=== PATIENT | male | born 1965 | race Caucasian/White ===

== ENCOUNTER → 2017-09-11 06:46 | Outpatient (CLI) | payer OTHER, SELFPAY ==
[2017-09-11 08:37] LABS: Cholesterol 209 mg/dL (140-199); HDL Cholesterol 54 mg/dL (40-60); Magnesium 1.5 mg/dL (1.6-2.3); Triglycerides 410 mg/dL (35-150)
== END ==
PROVIDERS: PCP Family Medicine; Visit Provider Internal Medicine Cardiovascular Disease
DX: R00.2 Palpitations (principal); E78.2 Mixed hyperlipidemia
CPT/HCPCS: 36415; 80061; 83735

== ENCOUNTER → 2019-01-31 06:46 | Outpatient (CLI) | payer OTHER, SELFPAY ==
[2019-01-31 09:17] LABS: Alanine Aminotransferase 39 IU/L (21-72); Albumin 4.5 g/dL (3.5-5.0); Albumin Globulin Ratio 1.3 (1.0-2.8); Alkaline Phosphatase 58 U/L (38-126); Aspartate Aminotransferase 37 IU/L (17-59); Bilirubin Total 0.7 mg/dL (0.2-1.3); Blood Urea Nitrogen 9 mg/dL (9-20); Calcium 9.6 mg/dL (8.4-10.2); Carbon Dioxide 28 mmol/L (22-32); Chloride 103 mmol/L (98-107); Cholesterol 167 mg/dL (140-199); Estimated Glomerular Filt Rate > 60.0 mL/min (>60); Globulin 3.6 g/dL (1.7-4.1); Glucose 75 mg/dL (70-100); HDL Cholesterol 46 mg/dL (40-60); HEMOLYSIS < 15 (0-50); Potassium 4.4 mmol/L (3.4-5.1); Sodium 141 mmol/L (137-145); Total Protein 8.1 g/dL (6.3-8.2)
[2019-01-31 09:26] LABS: Triglycerides 558 mg/dL (35-150)
[2019-01-31 09:45] LABS: Prostate Specific Antigen Scrn 2.03 ng/mL (0.1-4.0)
[2019-01-31 10:25] LABS: Add Manual Diff / Slide Review NO; Basophils Absolute Auto 0 /uL (0-100); Basophils Percent Auto 0.6 % (0-2); Eosinophils Absolute Auto 100 /uL (0-450); Eosinophils Percent Auto 1.3 % (2-4); Hematocrit 43.4 % (41-53); Hemoglobin 14.9 g/dL (13.5-17.5); Lymphocytes Absolute Auto 1600 /uL (1100-4500); Lymphocytes Percent Auto 34.6 % (25-40); Mean Corpuscular HGB Conc 34.3 % (30-36); Mean Corpuscular Hemoglobin 32.2 PG (26-34); Mean Corpuscular Volume 93.9 fL (80-100); Monocytes Absolute Auto 600 /uL (0-900); Monocytes Percent Auto 13.2 % (3-14); Neutrophils Absolute Auto 2400 /uL (1500-7000); Neutrophils Percent Auto 50.3 % (50-75); Platelet Count 268 X10^3/uL (150-400); Red Blood Cell Count 4.62 X10^6/uL (4.5-5.9); Red Cell Distribution Width 13.6 % (11.6-14.8); White Blood Cell Count 4.7 X10^3/uL (4.5-11.0)
== END ==
PROVIDERS: Family Provider Internal Medicine Cardiovascular Disease; PCP Family Medicine; Visit Provider Family Medicine
DX: Z12.5 Encounter for screening for malignant neoplasm of prostate (principal); E78.5 Hyperlipidemia, unspecified
CPT/HCPCS: 36415; 80053; 80061; 85025; G0103

== ENCOUNTER → 2019-05-04 07:53 | Outpatient (CLI) | payer OTHER, SELFPAY ==
[2019-05-04 09:08] LABS: Cholesterol 183 mg/dL (140-199); HDL Cholesterol 55 mg/dL (40-60); LDL Cholesterol Calculated 79 mg/dL (<100); Triglycerides 247 mg/dL (35-150)
== END ==
PROVIDERS: PCP Family Medicine; Visit Provider Family Medicine
DX: E78.2 Mixed hyperlipidemia (principal)
CPT/HCPCS: 36415; 80061

== ENCOUNTER → 2020-03-24 07:44 | Outpatient (CLI) | payer OTHER, SELFPAY ==
[2020-03-24 08:42] LABS: Alanine Aminotransferase 30 IU/L (<50); Albumin 4.8 g/dL (3.5-5.0); Albumin Globulin Ratio 1.3 (1.0-2.8); Alkaline Phosphatase 69 U/L (38-126); Aspartate Aminotransferase 38 IU/L (17-59); BUN Creatinine Ratio 16.3 (6-22); Bilirubin Total 0.5 mg/dL (0.2-1.3); Blood Urea Nitrogen 14 mg/dL (9-20); Calcium 9.9 mg/dL (8.4-10.2); Carbon Dioxide 30 mmol/L (22-32); Chloride 103 mmol/L (98-107); Cholesterol 216 mg/dL (140-199); Estimated Glomerular Filt Rate > 60.0 mL/min (>60); Globulin 3.8 g/dL (1.7-4.1); Glucose 98 mg/dL (70-100); HDL Cholesterol 48 mg/dL (40-60); HEMOLYSIS 15 (0-50); Magnesium 1.5 mg/dL (1.6-2.3); Potassium 4.3 mmol/L (3.4-5.1); Sodium 140 mmol/L (137-145); Total Protein 8.6 g/dL (6.3-8.2); Triglycerides 465 mg/dL (35-150)
[2020-03-24 08:53] LABS: LDL Cholesterol Direct 38 mg/dL (<100)
== END ==
PROVIDERS: PCP Internal Medicine; Referring Provider Internal Medicine; Visit Provider Internal Medicine
DX: E78.2 Mixed hyperlipidemia (principal); E83.42 Hypomagnesemia
CPT/HCPCS: 36415; 80053; 80061; 83721; 83735

== ENCOUNTER → 2020-07-30 10:17 | Outpatient (CLI) | payer OTHER, SELFPAY ==
[2020-07-30] MEDS: COVID-19 VACC, Ad26(JANSSEN)/PF 0.5 ML IM (10:22)
== END ==
PROVIDERS: PCP Internal Medicine; Visit Provider Internal Medicine
DX: Z23 Encounter for immunization (principal)
CPT/HCPCS: 0031A; 91303

== ENCOUNTER → 2020-09-25 06:58 | Outpatient (CLI) | payer OTHER, SELFPAY ==
[2020-09-25 08:17] LABS: Alanine Aminotransferase 24 IU/L (<50); Albumin 4.6 g/dL (3.5-5.0); Albumin Globulin Ratio 1.3 (1.0-2.8); Alkaline Phosphatase 76 U/L (38-126); Aspartate Aminotransferase 34 IU/L (17-59); BUN Creatinine Ratio 18.8 (6-22); Bilirubin Total 0.4 mg/dL (0.2-1.3); Blood Urea Nitrogen 15 mg/dL (9-20); Calcium 9.9 mg/dL (8.4-10.2); Carbon Dioxide 23 mmol/L (22-32); Chloride 104 mmol/L (98-107); Cholesterol 251 mg/dL (140-199); Estimated Glomerular Filt Rate > 60.0 mL/min (>60); Globulin 3.6 g/dL (1.7-4.1); Glucose 95 mg/dL (70-100); HDL Cholesterol 48 mg/dL (40-60); HEMOLYSIS < 15 (0-50); Magnesium 1.6 mg/dL (1.6-2.3); Potassium 4.5 mmol/L (3.4-5.1); Sodium 137 mmol/L (137-145); Total Protein 8.2 g/dL (6.3-8.2)
[2020-09-25 08:26] LABS: Triglycerides 661 mg/dL (35-150)
[2020-09-25 08:29] LABS: LDL Cholesterol Direct 40 mg/dL (<100)
== END ==
PROVIDERS: PCP Internal Medicine; Referring Provider Internal Medicine; Visit Provider Internal Medicine
DX: E78.2 Mixed hyperlipidemia (principal); E83.42 Hypomagnesemia
CPT/HCPCS: 36415; 80053; 80061; 83721; 83735

== ENCOUNTER → 2021-01-07 06:51 | Outpatient (CLI) | payer OTHER, SELFPAY ==
[2021-01-07 08:43] LABS: Alanine Aminotransferase 32 IU/L (<50); Albumin 4.8 g/dL (3.5-5.0); Albumin Globulin Ratio 1.4 (1.0-2.8); Alkaline Phosphatase 43 U/L (38-126); Aspartate Aminotransferase 39 IU/L (17-59); BUN Creatinine Ratio 12.8 (6-22); Bilirubin Total 0.4 mg/dL (0.2-1.3); Blood Urea Nitrogen 12 mg/dL (9-20); Calcium 9.3 mg/dL (8.4-10.2); Carbon Dioxide 26 mmol/L (22-32); Chloride 107 mmol/L (98-107); Cholesterol 152 mg/dL (140-199); Estimated Glomerular Filt Rate > 60.0 mL/min (>60); Globulin 3.4 g/dL (1.7-4.1); Glucose 86 mg/dL (70-100); HDL Cholesterol 59 mg/dL (40-60); HEMOLYSIS < 15 (0-50); LDL Cholesterol Calculated 45 mg/dL (<100); Potassium 4.5 mmol/L (3.4-5.1); Sodium 143 mmol/L (137-145); Total Protein 8.2 g/dL (6.3-8.2); Triglycerides 238 mg/dL (35-150)
[2021-01-07 09:19] LABS: LDL Cholesterol Direct < 30 mg/dL (<100)
== END ==
PROVIDERS: PCP Internal Medicine; Referring Provider Internal Medicine; Visit Provider Internal Medicine
DX: E78.2 Mixed hyperlipidemia (principal)
CPT/HCPCS: 36415; 80053; 80061; 83721

== ENCOUNTER → 2021-12-04 07:53 | Outpatient (CLI) | payer OTHER, SELFPAY ==
[2021-12-04 09:46] LABS: Alanine Aminotransferase 24 IU/L (<50); Albumin 4.5 g/dL (3.5-5.0); Albumin Globulin Ratio 1.3 (1.0-2.8); Alkaline Phosphatase 54 U/L (38-126); Aspartate Aminotransferase 30 IU/L (17-59); BUN Creatinine Ratio 12.6 (6-22); Bilirubin Total 0.2 mg/dL (0.2-1.3); Blood Urea Nitrogen 14 mg/dL (9-20); Calcium 9.1 mg/dL (8.4-10.2); Carbon Dioxide 28 mmol/L (22-32); Chloride 107 mmol/L (98-107); Cholesterol 146 mg/dL (140-199); Estimated Glomerular Filt Rate > 60 mL/min (>60); Globulin 3.5 g/dL (1.7-4.1); Glucose 89 mg/dL (70-100); HDL Cholesterol 49 mg/dL (40-60); HEMOLYSIS < 15 (0-50); LDL Cholesterol Calculated 60 mg/dL (<100); Magnesium 1.5 mg/dL (1.6-2.3); Potassium 4.7 mmol/L (3.4-5.1); Sodium 140 mmol/L (137-145); Triglycerides 183 mg/dL (35-150)
[2021-12-04 10:22] LABS: LDL Cholesterol Direct < 30 mg/dL (<100)
== END ==
PROVIDERS: PCP Internal Medicine; Referring Provider Internal Medicine; Visit Provider Internal Medicine
DX: E83.42 Hypomagnesemia (principal); E78.2 Mixed hyperlipidemia; Z12.5 Encounter for screening for malignant neoplasm of prostate
CPT/HCPCS: 36415; 80053; 80061; 83721; 83735; G0103

== ENCOUNTER → 2023-10-16 07:27 | Outpatient (CLI) | payer OTHER, SELFPAY ==
[2023-10-16 08:12] LABS: Add Manual Diff / Slide Review NO; Basophils Absolute Auto 0 /uL (0-100); Basophils Percent Auto 0.7 % (0-2); Eosinophils Absolute Auto 100 /uL (0-450); Eosinophils Percent Auto 1.3 % (2-4); Hematocrit 43.8 % (41-53); Hemoglobin 14.9 g/dL (13.5-17.5); Lymphocytes Absolute Auto 1600 /uL (1100-4500); Lymphocytes Percent Auto 24.9 % (25-40); Mean Corpuscular HGB Conc 34.1 % (30-36); Mean Corpuscular Hemoglobin 31.4 PG (26-34); Mean Corpuscular Volume 92.1 fL (80-100); Monocytes Absolute Auto 800 /uL (0-900); Monocytes Percent Auto 11.7 % (3-14); Neutrophils Absolute Auto 3900 /uL (1500-7000); Neutrophils Percent Auto 61.4 % (50-75); Platelet Count 282 X10^3/uL (150-400); Red Blood Cell Count 4.76 X10^6/uL (4.5-5.9); Red Cell Distribution Width 14.3 % (11.6-14.8); White Blood Cell Count 6.4 X10^3/uL (4.5-11.0)
[2023-10-16 08:33] LABS: Alanine Aminotransferase 28 IU/L (<50); Albumin 4.8 g/dL (3.5-5.0); Albumin Globulin Ratio 1.3 (1.0-2.8); Alkaline Phosphatase 53 U/L (38-126); Aspartate Aminotransferase 33 IU/L (17-59); BUN Creatinine Ratio 11.6 (6-22); Bilirubin Total 0.5 mg/dL (0.2-1.3); Blood Urea Nitrogen 13 mg/dL (9-20); Calcium 9.5 mg/dL (8.4-10.2); Carbon Dioxide 26 mmol/L (22-32); Chloride 108 mmol/L (98-107); Cholesterol 160 mg/dL (140-199); Estimated Glomerular Filt Rate > 60 mL/min (>60); Globulin 3.8 g/dL (1.7-4.1); Glucose 106 mg/dL (70-100); HDL Cholesterol 67 mg/dL (40-60); HEMOLYSIS < 15 (0-50); LDL Cholesterol Calculated 74 mg/dL (<100); Potassium 4.9 mmol/L (3.4-5.1); Sodium 140 mmol/L (137-145); Total Protein 8.6 g/dL (6.3-8.2); Triglycerides 95 mg/dL (35-150)
[2023-10-16 08:45] LABS: LDL Cholesterol Direct 46 mg/dL (<100)
[2023-10-16 08:55] LABS: Prostate Specific Antigen Scrn 2.26 ng/mL (0.1-4.0)
== END ==
PROVIDERS: PCP Internal Medicine; Referring Provider Internal Medicine; Visit Provider Internal Medicine
DX: Z12.5 Encounter for screening for malignant neoplasm of prostate (principal); Z13.6 Encounter for screening for cardiovascular disorders; Z13.1 Encounter for screening for diabetes mellitus; Z13.220 Encounter for screening for lipoid disorders; E78.2 Mixed hyperlipidemia; D64.9 Anemia, unspecified
CPT/HCPCS: 36415; 80053; 80061; 83721; 85025; G0103

== ENCOUNTER → 2024-04-15 07:34 | Outpatient (CLI) | payer OTHER, SELFPAY ==
--- NOTE | 2024-04-15 07:36 | DI.ECHO.S_ITS ---
[facility] : : [id number] : : [place] : : [id number] : : Phone: [phone] Echocardiogram Report + + :Name: ENRIQUE MICHAEL Study Date: 04/15/2024 Height: 71 in : :Hospital ReadingLocation: Weight: 178 lb : : Gender: Male BSA: 2.0 m2 : :: 1965 Age: 58 yrs BP: 151/93 mmHg: :Reason For Study: CHEST DISCOMFORT : :Ordering Physician: JOAQUINA, : :BARBY Performed By: Mary Noriega : :Referring: BARBY KUNZ : + + Interpretation Summary The left ventricle is normal in size. The left ventricular ejection fraction is normal. Left ventricular ejection fraction is estimated to be 60 +/- 5%. Previously LVEF 55 to 60%. The right ventricle is normal size. The right ventricular systolic function is normal. No significant valvular pathology seen The IVC is of normal diameter and collapses greater than 50% with a sniff. This suggests a low right atrial pressure of 3 mm Hg. Procedure: A two-dimensional transthoracic echocardiogram with color flow and Doppler was performed. The study quality was technically adequate. Comparison is made with the echocardiogram of 03/21/2014. The patient was in sinus rhythm with heart rates between 88-95 bpm during the exam. Left Ventricle: The left ventricle is normal in size. Proximal septal thickening is noted. There is no echo evidence for significant left ventricular outflow tract obstruction. There is no thrombus. The left ventricular ejection fraction is normal. Left ventricular ejection fraction is estimated to be 60 +/- 5%. Septal motion is consistent with conduction abnormality. Diastolic parameters suggest a relaxation abnormality of the left ventricle, consistent with probable normal filling pressures. Right Ventricle: The right ventricle is normal size. A moderator band is seen in the right ventricle. The right ventricular systolic function is normal. Atria: The left atrial size is normal. There has been no significant change since the previous study. Right atrial size is normal. There is no Doppler evidence for an interatrial shunt. The thickening of interatrial septum suggests lipomatous hypertrophy. Mitral Valve: The mitral valve leaflets appear to open well. The mitral valve leaflets appear borderline thickened, but open well. There is trace mitral regurgitation. Aortic Valve: The aortic valve is trileaflet. The aortic valve is slightly calcified. The aortic valve opens well. There is no aortic valve stenosis. No aortic regurgitation is present. Tricuspid Valve: The tricuspid valve is normal. Pulmonary artery pressures cannot be estimated because of the lack of a measurable TR jet velocity. There is trace tricuspid regurgitation. Pulmonic Valve: The pulmonic valve leaflets are thin and pliable; valve motion is normal. There is no pulmonic valvular regurgitation. Great Vessels: The aortic root is normal size. The dimensions of the ascending aorta are normal. The IVC is of normal diameter and collapses greater than 50% with a sniff. This suggests a low right atrial pressure of 3 mm Hg. Pericardium/ Pleura There is no pericardial effusion. There is no pleural effusion. MMode/2D Measurements & Calculations LVIDd: 4.2 cm LVOT diam: 2.2 cm LVIDs: 3.0 cm Ao root diam: 3.5 cm FS: 28.6 % asc Aorta Diam: 3.4 cm IVSd: 0.95 cm Ao Arch Diam (Prox Trans): 2.8 cm LVPWd: 0.90 cm LV medina. diameter/BSA (cm/m^2): 2.1 LV sys. diameter/BSA (cm/m^2): 1.5 LA A2 area: 16.6 cm2 RA long axis: 3.6 cm LA A4 area: 12.2 cm2 RA area: 9.7 cm2 LA length (vol): 4.2 cm RA vol: 21.9 ml LA vol: 41.3 ml RA : 10.9 ml/m2 LA vol index: 20.6 ml/m2 IVC diam: 0.82 cm RVD1 (basal): 3.9 cm RVD2 (mid): 3.2 cm TAPSE: 1.5 cm Doppler Measurements & Calculations Ao V2 max: 114.0 cm/sec LVOT Max Uvaldo: 80.4 cm/sec Ao V2 mean: 78.5 cm/sec LV V1 max P.6 mmHg Ao max P.2 mmHg LV V1 VTI: 14.3 cm Ao mean P.8 mmHg ANNE(I,D): 3.0 cm2 Ao V2 VTI: 18.8 cm ANNE(V,D): 2.8 cm2 sev ratio: 0.76 ANNE indexed to BSA (cm^2/m^2): 1.5 MV E max uvaldo: 51.5 cm/sec PA V2 max: 93.3 cm/sec MV A max uvaldo: 70.4 cm/sec PA V2 mean: 72.7 cm/sec MV E/A: 0.73 PA mean P.2 mmHg Med Peak E' Uvaldo: 6.7 cm/sec PA pr(Accel): 36.2 mmHg E/E' med: 7.7 Lat Peak E' Uvaldo: 8.6 cm/sec E/E' lat: 6.0 E/e' average: 6.8 MV dec time: 0.14 sec SV(LVOT): 56.9 ml Reading Physician:04:23 PM
--- NOTE | 2024-04-15 14:55 | DI.NM.S_ITS ---
DATE OF SERVICE: 04/15/2024 PROCEDURE: Exercise stress test. INDICATIONS: Chest pain, hyperlipidemia, family history of coronary artery disease. CARDIAC STRESS: The patient underwent exercise stress test under the supervision of an attending staff. He walked on Wesley protocol for 9 minutes and 35 seconds, achieved maximum heart rate of 169, which was 104% of target heart rate. Resting blood pressure 136/90 and peak blood pressure 192/82 mmHg with normal blood pressure response. 10.1 METS of workload. TRELL -4%. Baseline rhythm was sinus. During stress, no convincing ischemic changes seen. No significant arrhythmias. No chest pain. Had some shortness of breath. CONCLUSION: Exercise stress test is negative for inducible ischemia. Good exercise tolerance. Normal hemodynamic response. No ischemic changes or significant arrhythmias or chest pain. Overall, low-risk exercise stress test. Coin Inderjit - WAYNE/jalen/SKB doc#: [id number]/job#: [id number] dd: 04/15/2024 13:03:00 dt: 04/15/2024 14:17:00 DICTATING /COPIES TO: Patricia Wilder MD COPIES MNE: FERNANDA;
== END ==
LOC: NUCM 07:35
PROVIDERS: PCP Internal Medicine; Referring Provider Internal Medicine Cardiovascular Disease; Visit Provider Internal Medicine Cardiovascular Disease
DX: E78.5 Hyperlipidemia, unspecified (principal); R07.89 Other chest pain; Z82.49 Family history of ischemic heart disease and other diseases of the circulatory system
CPT/HCPCS: 93017; 93306